=== PATIENT | male | born 1970 ===

== ENCOUNTER 2018-08-02 10:19 | Inpatient (IN) | payer OTHER ==
[~2018-08-02] VITALS: Ht 172.7 cm; Wt 88.5 kg
[2018-08-09] MEDS ORDERED: Neurin-Sl Tablet Sl SL (10:09)
[2018-08-09] MEDS ORDERED: PERCOCET 5-3251 EACH PO (10:09)
== END 2018-08-09 14:37 | disposition home or self-care (01) | DRG 330 ==
LOC: ER 10:19 → SURG 17:55
PROVIDERS: Surgery
PROC: BW25Y0Z Computerized Tomography (CT Scan) of Chest, Abdomen and Pelvis using Other Contrast, Unenhanced and Enhanced (ICD-10-PCS; 2018-08-02)
PROC: 0DBL8ZX Excision of Transverse Colon, Via Natural or Artificial Opening Endoscopic, Diagnostic (ICD-10-PCS; 2018-08-03)
PROC: 0DBG8ZX Excision of Left Large Intestine, Via Natural or Artificial Opening Endoscopic, Diagnostic (ICD-10-PCS; 2018-08-03)
PROC: 0DBP8ZX Excision of Rectum, Via Natural or Artificial Opening Endoscopic, Diagnostic (ICD-10-PCS; 2018-08-03)
PROC: BW30Y0Z Magnetic Resonance Imaging (MRI) of Abdomen using Other Contrast, Unenhanced and Enhanced (ICD-10-PCS; 2018-08-03)
PROC: 3E0336Z Introduction of Nutritional Substance into Peripheral Vein, Percutaneous Approach (ICD-10-PCS; 2018-08-03)
PROC: 30233N1 Transfusion of Nonautologous Red Blood Cells into Peripheral Vein, Percutaneous Approach (ICD-10-PCS; 2018-08-03)
PROC: 02HV33Z Insertion of Infusion Device into Superior Vena Cava, Percutaneous Approach (ICD-10-PCS; 2018-08-04)
PROC: 0JH63WZ Insertion of Totally Implantable Vascular Access Device into Chest Subcutaneous Tissue and Fascia, Percutaneous Approach (ICD-10-PCS; 2018-08-06)
PROC: 05H633Z Insertion of Infusion Device into Left Subclavian Vein, Percutaneous Approach (ICD-10-PCS; 2018-08-06)
PROC: 0D1L4Z4 Bypass Transverse Colon to Cutaneous, Percutaneous Endoscopic Approach (ICD-10-PCS; principal; 2018-08-06 07:00)
DX: C18.4 Malignant neoplasm of transverse colon (principal); K56.690 Other partial intestinal obstruction; C78.7 Secondary malignant neoplasm of liver and intrahepatic bile duct; D12.4 Benign neoplasm of descending colon; D12.7 Benign neoplasm of rectosigmoid junction; D50.0 Iron deficiency anemia secondary to blood loss (chronic); E88.09 Other disorders of plasma-protein metabolism, not elsewhere classified
CPT/HCPCS: 74182

== ENCOUNTER 2019-10-17 06:09 | Inpatient (IN) | payer OTHER ==
[~2019-10-17] VITALS: Ht 172.7 cm; Wt 88.5 kg
[~2019-10-17 06:09] MED LIST: Neurin-Sl Tablet Sl SL; PERCOCET 5-3251 EACH PO
[2019-11-01] MEDS ORDERED: HYOSCYAMINE0.125 M1 SL (11:24)
[2019-11-01] MEDS ORDERED: OXYC1TAB9 PO (11:24)
== END 2019-11-01 12:00 | disposition home or self-care (01) | DRG 327 ==
LOC: SURH 06:09 → O/R 10-24 05:20 → SURH 10-24 14:30
PROVIDERS: ADMIT Surgery
PROC: 0DTG0ZZ Resection of Left Large Intestine, Open Approach (ICD-10-PCS; 2019-10-24)
PROC: 0DB60ZZ Excision of Stomach, Open Approach (ICD-10-PCS; principal; 2019-10-24 09:00)
PROC: 0DH67UZ Insertion of Feeding Device into Stomach, Via Natural or Artificial Opening (ICD-10-PCS; 2019-10-25)
PROC: 3E0G76Z Introduction of Nutritional Substance into Upper GI, Via Natural or Artificial Opening (ICD-10-PCS; 2019-10-25)
DX: C18.6 Malignant neoplasm of descending colon (principal); C78.89 Secondary malignant neoplasm of other digestive organs; E44.0 Moderate protein-calorie malnutrition; K86.81 Exocrine pancreatic insufficiency; K63.89 Other specified diseases of intestine; D50.0 Iron deficiency anemia secondary to blood loss (chronic); E88.09 Other disorders of plasma-protein metabolism, not elsewhere classified

== ENCOUNTER 2020-04-04 10:42 | Outpatient (CLI) | payer OTHER ==
[~2020-04-04 10:42] MED LIST changes: +HYOSCYAMINE0.125 M1 SL; +OXYC1TAB9 PO
== END 2020-04-04 10:43 | disposition home or self-care (01) ==
LOC: RX STUDY 10:42
DX: C18.5 Malignant neoplasm of splenic flexure (principal); C78.7 Secondary malignant neoplasm of liver and intrahepatic bile duct; K56.609 Unspecified intestinal obstruction, unspecified as to partial versus complete obstruction

== ENCOUNTER 2020-05-24 09:15 | Inpatient (IN) | payer OTHER ==
[~2020-05-24] VITALS: Ht 177.8 cm; Wt 74.8 kg
[2020-06-04] MEDS ORDERED: OMEPRAZOLE20 MG PO (11:06)
[2020-06-04] MEDS ORDERED: INTESTINEX680 M1 PO (11:06)
[2020-06-04] MEDS ORDERED: PERCOCET 5-3251 EACH PO (11:06)
== END 2020-06-04 16:47 | disposition home or self-care (01) | DRG 345 ==
LOC: O/R 05-28 05:05 → SURH 05-28 07:00 → O/R 05-28 09:15 → SURG 05-28 10:35
PROVIDERS: ADMIT Surgery; ATTEND Surgery
PROC: 0DSL4ZZ Reposition Transverse Colon, Percutaneous Endoscopic Approach (ICD-10-PCS; principal; 2020-05-28 07:00)
DX: C18.5 Malignant neoplasm of splenic flexure (principal); K91.31 Postprocedural partial intestinal obstruction; Z93.3 Colostomy status